=== PATIENT | male | born 1945 | race Caucasian/White ===

== ENCOUNTER 2021-02-25 18:11 | Inpatient (IN) ==
[~2021-02-25 18:11] MED LIST: Azelastine 0.1% Nasal Spray 30 ML BOTTLE NS PRN; Furosemide 20 MG TABLET PO PRN
[2021-02-25] MEDS: lisinopriL 20 MG TABLET PO SCH (20:10)
[2021-02-25] MEDS: GuaiFENesin/Dextromethorphan TABLET PO SCH (20:34)
[2021-02-25] MEDS: Apixaban 5 MG TABLET PO SCH (20:34)
[2021-02-25] MEDS: Carbidopa/Levodopa 25/100 TABLET PO SCH (20:34)
[2021-02-26 05:56] LABS: Basophils % 0.4 %; Eosinophils # 0.2 K/mcL (0.0-0.6); Hematocrit 43.7 % (37.5-50.1); Immature Granulocytes % 0.2 % (0-4); Lymphocytes # 1.4 K/mcL (0.6-4.6); Lymphocytes % 27.1 %; Mean Corpuscular HGB Conc 34.3 g/dL (31.6-35.5); Mean Corpuscular Hemoglobin 29.1 pg (28.0-33.3); Mean Corpuscular Volume 84.7 fL (83.0-100.0); Monocytes # 0.8 K/mcL (0.0-1.3); Monocytes % 16.6 %; Neutrophils # 2.6 K/mcL (1.6-8.9); Platelet Count 145 K/mcL (140-400); Red Blood Count 5.16 M/mcL (4.19-5.50); Red Cell Distribution Width 13.3 % (11.5-14.5); Segmented Neutrophils % 52.7 %
[2021-02-26 06:10] LABS: BUN/Creatinine Ratio 29 (6-26); Blood Urea Nitrogen 36 mg/dL (8-23); Calcium 8.7 mg/dL (8.6-10.3); Carbon Dioxide 24 mEq/L (23-29); Chloride 96 mEq/L (98-107); Glucose 90 mg/dL (70-105); Osmolality,Calculated 272 (280-300); Sodium 127 mEq/L (136-145); eGFR For African Americans > 60 (> 60); eGFR For Non-African Americans 56 (> 60)
[2021-02-26] MEDS ORDERED: hydroCHLOROthiazide 25 MG TABLET PO SCH (09:00)
[2021-02-26] MEDS: Metoprolol XL (24 HR) Succ 25 MG TAB.ER.24H PO SCH (09:19)
[2021-02-26] MEDS: Multivit/Ca/Min/Fe/FA 1 TAB TABLET PO SCH (09:19)
[2021-02-26] MEDS: Apixaban 5 MG TABLET PO SCH ×2 (09:20→19:59)
[2021-02-26] MEDS: Aspirin Enteric Coated 81 MG Tablet PO SCH (09:20)
[2021-02-26] MEDS: Carbidopa/Levodopa 25/100 TABLET PO SCH ×3 (09:20→19:59)
[2021-02-26] MEDS: Finasteride 5 MG TABLET PO SCH (09:20)
[2021-02-26] MEDS: lisinopriL 20 MG TABLET PO SCH (16:20)
[2021-02-26] MEDS: GuaiFENesin/Dextromethorphan TABLET PO SCH (19:59)
[2021-02-27] MEDS: Metoprolol XL (24 HR) Succ 25 MG TAB.ER.24H PO SCH (10:08)
[2021-02-27] MEDS: Multivit/Ca/Min/Fe/FA 1 TAB TABLET PO SCH (10:08)
[2021-02-27] MEDS: Carbidopa/Levodopa 25/100 TABLET PO SCH ×3 (10:08→20:55)
[2021-02-27] MEDS: Finasteride 5 MG TABLET PO SCH (10:08)
[2021-02-27] MEDS: Apixaban 5 MG TABLET PO SCH ×2 (10:08→20:53)
[2021-02-27] MEDS: Aspirin Enteric Coated 81 MG Tablet PO SCH (10:08)
[2021-02-27] MEDS: lisinopriL 20 MG TABLET PO SCH (18:43)
[2021-02-27] MEDS: GuaiFENesin/Dextromethorphan TABLET PO SCH (20:55)
[2021-02-28] MEDS: Multivit/Ca/Min/Fe/FA 1 TAB TABLET PO SCH (08:57)
[2021-02-28] MEDS: Metoprolol XL (24 HR) Succ 25 MG TAB.ER.24H PO SCH (08:58)
[2021-02-28] MEDS: Aspirin Enteric Coated 81 MG Tablet PO SCH (08:58)
[2021-02-28] MEDS: Nitrofurantoin (BID) 100 MG CAPSULE PO SCH ×2 (08:58→17:22)
[2021-02-28] MEDS: Carbidopa/Levodopa 25/100 TABLET PO SCH ×3 (08:58→21:26)
[2021-02-28] MEDS: Apixaban 5 MG TABLET PO SCH ×2 (08:58→21:25)
[2021-02-28] MEDS: Finasteride 5 MG TABLET PO SCH (08:58)
[2021-02-28] MEDS: lisinopriL 20 MG TABLET PO SCH (17:22)
[2021-02-28] MEDS: GuaiFENesin/Dextromethorphan TABLET PO SCH (21:25)
[2021-03-01 06:21] LABS: Hemoglobin 14.1 g/dL (12.9-16.9); Mean Corpuscular HGB Conc 34.4 g/dL (31.6-35.5); Mean Corpuscular Hemoglobin 29.6 pg (28.0-33.3); Platelet Count 134 K/mcL (140-400); Red Blood Count 4.77 M/mcL (4.19-5.50); Red Cell Distribution Width 13.4 % (11.5-14.5); White Blood Count 3.9 K/mcL (4.3-11.1)
[2021-03-01 06:39] LABS: Alanine Aminotransferase 8 Units/L (7-52); Albumin 3.3 g/dL (3.5-5.7); Alkaline Phosphatase 53 Units/L (34-104); Aspartate Amino Transferase 16 Units/L (13-39); BUN/Creatinine Ratio 27 (6-26); Bilirubin,Total 0.7 mg/dL (0.3-1.0); Blood Urea Nitrogen 31 mg/dL (8-23); Calcium 8.5 mg/dL (8.6-10.3); Carbon Dioxide 24 mEq/L (23-29); Chloride 98 mEq/L (98-107); Globulin 3.2 g/dL (2.4-3.5); Glucose 87 mg/dL (70-105); Magnesium 2.2 mg/dL (1.6-2.6); Osmolality,Calculated 270 (280-300); Sodium 127 mEq/L (136-145); Total Protein 6.5 g/dL (6.4-8.9); eGFR For African Americans > 60 (> 60); eGFR For Non-African Americans > 60 (> 60)
[2021-03-01] MEDS: Aspirin Enteric Coated 81 MG Tablet PO SCH (09:48)
[2021-03-01] MEDS: Nitrofurantoin (BID) 100 MG CAPSULE PO SCH ×2 (09:48→18:00)
[2021-03-01] MEDS: Apixaban 5 MG TABLET PO SCH ×2 (09:49→23:15)
[2021-03-01] MEDS: Metoprolol XL (24 HR) Succ 25 MG TAB.ER.24H PO SCH (09:49)
[2021-03-01] MEDS: Finasteride 5 MG TABLET PO SCH (09:49)
[2021-03-01] MEDS: Multivit/Ca/Min/Fe/FA 1 TAB TABLET PO SCH (09:50)
[2021-03-01] MEDS: Carbidopa/Levodopa 25/100 TABLET PO SCH ×3 (09:50→23:15)
[2021-03-01 13:08] LABS: C-Reactive Protein 10 mg/L (Less than 10)
[2021-03-01 13:42] LABS: Ferritin 43 ng/mL (20-250)
[2021-03-01] MEDS: lisinopriL 20 MG TABLET PO SCH (18:00)
[2021-03-01] MEDS: GuaiFENesin/Dextromethorphan TABLET PO SCH (23:16)
[2021-03-02] MEDS: Multivit/Ca/Min/Fe/FA 1 TAB TABLET PO SCH (09:41)
[2021-03-02] MEDS: Metoprolol XL (24 HR) Succ 25 MG TAB.ER.24H PO SCH (09:42)
[2021-03-02] MEDS: Nitrofurantoin (BID) 100 MG CAPSULE PO SCH ×2 (09:42→17:10)
[2021-03-02] MEDS: Carbidopa/Levodopa 25/100 TABLET PO SCH ×3 (09:42→21:25)
[2021-03-02] MEDS: Finasteride 5 MG TABLET PO SCH (09:42)
[2021-03-02] MEDS: Apixaban 5 MG TABLET PO SCH ×2 (09:42→21:26)
[2021-03-02] MEDS: Aspirin Enteric Coated 81 MG Tablet PO SCH (09:42)
[2021-03-02] MEDS: lisinopriL 20 MG TABLET PO SCH (17:10)
[2021-03-02] MEDS: GuaiFENesin/Dextromethorphan TABLET PO SCH (21:26)
[2021-03-03] MEDS: Nitrofurantoin (BID) 100 MG CAPSULE PO SCH ×2 (09:48→16:06)
[2021-03-03] MEDS: Metoprolol XL (24 HR) Succ 25 MG TAB.ER.24H PO SCH (09:48)
[2021-03-03] MEDS: Finasteride 5 MG TABLET PO SCH (09:48)
[2021-03-03] MEDS: Nystatin Cream 15 GM TUBE TP SCH ×2 (09:48→22:38)
[2021-03-03] MEDS: Apixaban 5 MG TABLET PO SCH ×2 (09:48→22:38)
[2021-03-03] MEDS: Multivit/Ca/Min/Fe/FA 1 TAB TABLET PO SCH (09:48)
[2021-03-03] MEDS: Carbidopa/Levodopa 25/100 TABLET PO SCH ×3 (09:48→22:38)
[2021-03-03] MEDS: Aspirin Enteric Coated 81 MG Tablet PO SCH (09:49)
[2021-03-03] MEDS: lisinopriL 20 MG TABLET PO SCH (17:51)
[2021-03-03] MEDS: GuaiFENesin/Dextromethorphan TABLET PO SCH (22:38)
[2021-03-04] MEDS: Metoprolol XL (24 HR) Succ 25 MG TAB.ER.24H PO SCH (08:37)
[2021-03-04] MEDS: Carbidopa/Levodopa 25/100 TABLET PO SCH ×3 (08:37→22:50)
[2021-03-04] MEDS: Apixaban 5 MG TABLET PO SCH ×2 (08:37→22:50)
[2021-03-04] MEDS: Multivit/Ca/Min/Fe/FA 1 TAB TABLET PO SCH (08:37)
[2021-03-04] MEDS: Aspirin Enteric Coated 81 MG Tablet PO SCH (08:38)
[2021-03-04] MEDS: Nystatin Cream 15 GM TUBE TP SCH ×2 (08:38→22:50)
[2021-03-04] MEDS: Nitrofurantoin (BID) 100 MG CAPSULE PO SCH ×2 (08:38→14:39)
[2021-03-04] MEDS: Finasteride 5 MG TABLET PO SCH (08:38)
[2021-03-04] MEDS ORDERED: Furosemide 40 MG TABLET PO ONE (12:09)
[2021-03-04 12:58] LABS: Hemoglobin 14.8 g/dL (12.9-16.9); Mean Corpuscular HGB Conc 32.9 g/dL (31.6-35.5); Mean Corpuscular Hemoglobin 28.9 pg (28.0-33.3); Mean Corpuscular Volume 87.9 fL (83.0-100.0); Platelet Count 193 K/mcL (140-400); Red Blood Count 5.12 M/mcL (4.19-5.50); Red Cell Distribution Width 13.6 % (11.5-14.5); White Blood Count 6.2 K/mcL (4.3-11.1)
[2021-03-04] MEDS: lisinopriL 20 MG TABLET PO SCH (14:39)
[2021-03-04 15:16] LABS: Alanine Aminotransferase 11 Units/L (7-52); Albumin 3.8 g/dL (3.5-5.7); Albumin/Globulin Ratio 1.1 (1.1-2.2); Alkaline Phosphatase 55 Units/L (34-104); Aspartate Amino Transferase 25 Units/L (13-39); BUN/Creatinine Ratio 23 (6-26); Bilirubin,Total 0.7 mg/dL (0.3-1.0); Blood Urea Nitrogen 25 mg/dL (8-23); Calcium 9.4 mg/dL (8.6-10.3); Carbon Dioxide 20 mEq/L (23-29); Chloride 101 mEq/L (98-107); Globulin 3.5 g/dL (2.4-3.5); Glucose 106 mg/dL (70-105); Osmolality,Calculated 277 (280-300); Potassium 4.4 mEq/L (3.5-5.1); Sodium 131 mEq/L (136-145); Total Protein 7.3 g/dL (6.4-8.9); eGFR For African Americans > 60 (> 60); eGFR For Non-African Americans > 60 (> 60)
[2021-03-04] MEDS: GuaiFENesin/Dextromethorphan TABLET PO SCH (22:49)
[2021-03-05] MEDS: Nitrofurantoin (BID) 100 MG CAPSULE PO SCH ×2 (07:42→15:30)
[2021-03-05] MEDS: Multivit/Ca/Min/Fe/FA 1 TAB TABLET PO SCH (07:42)
[2021-03-05] MEDS: levoFLOXacin 750 MG TABLET PO SCH (07:42)
[2021-03-05] MEDS: Finasteride 5 MG TABLET PO SCH (07:42)
[2021-03-05] MEDS: Aspirin Enteric Coated 81 MG Tablet PO SCH (07:42)
[2021-03-05] MEDS: Carbidopa/Levodopa 25/100 TABLET PO SCH ×3 (07:42→21:21)
[2021-03-05] MEDS: Furosemide 20 MG TABLET PO SCH (07:42)
[2021-03-05] MEDS: Apixaban 5 MG TABLET PO SCH ×2 (07:42→21:21)
[2021-03-05] MEDS: Nystatin Cream 15 GM TUBE TP SCH ×2 (07:43→21:22)
[2021-03-05] MEDS: Metoprolol XL (24 HR) Succ 25 MG TAB.ER.24H PO SCH (11:23)
[2021-03-05] MEDS: lisinopriL 20 MG TABLET PO SCH (15:30)
[2021-03-05] MEDS: GuaiFENesin/Dextromethorphan TABLET PO SCH (21:21)
[2021-03-06] MEDS: Carbidopa/Levodopa 25/100 TABLET PO SCH ×3 (07:38→20:56)
[2021-03-06] MEDS: Multivit/Ca/Min/Fe/FA 1 TAB TABLET PO SCH (07:38)
[2021-03-06] MEDS: Metoprolol XL (24 HR) Succ 25 MG TAB.ER.24H PO SCH (07:38)
[2021-03-06] MEDS: Nitrofurantoin (BID) 100 MG CAPSULE PO SCH ×2 (07:39→15:53)
[2021-03-06] MEDS: levoFLOXacin 750 MG TABLET PO SCH (07:39)
[2021-03-06] MEDS: Apixaban 5 MG TABLET PO SCH ×2 (07:39→20:56)
[2021-03-06] MEDS: Aspirin Enteric Coated 81 MG Tablet PO SCH (07:39)
[2021-03-06] MEDS: Finasteride 5 MG TABLET PO SCH (07:39)
[2021-03-06] MEDS: Furosemide 20 MG TABLET PO SCH (07:39)
[2021-03-06] MEDS: Nystatin Cream 15 GM TUBE TP SCH ×2 (07:40→21:52)
[2021-03-06 15:37] LABS: Hematocrit 40.7 % (37.5-50.1); Hemoglobin 13.3 g/dL (12.9-16.9)
[2021-03-06] MEDS: lisinopriL 20 MG TABLET PO SCH (15:57)
[2021-03-06] MEDS: GuaiFENesin/Dextromethorphan TABLET PO SCH (20:56)
[2021-03-07] MEDS: Carbidopa/Levodopa 25/100 TABLET PO SCH ×3 (08:59→20:59)
[2021-03-07] MEDS: Multivit/Ca/Min/Fe/FA 1 TAB TABLET PO SCH (08:59)
[2021-03-07] MEDS: Nitrofurantoin (BID) 100 MG CAPSULE PO SCH (09:00)
[2021-03-07] MEDS: levoFLOXacin 750 MG TABLET PO SCH (09:00)
[2021-03-07] MEDS: Apixaban 5 MG TABLET PO SCH ×2 (09:00→20:59)
[2021-03-07] MEDS: Metoprolol XL (24 HR) Succ 25 MG TAB.ER.24H PO SCH (09:00)
[2021-03-07] MEDS: Aspirin Enteric Coated 81 MG Tablet PO SCH (09:00)
[2021-03-07] MEDS: Furosemide 20 MG TABLET PO SCH (09:00)
[2021-03-07] MEDS: Finasteride 5 MG TABLET PO SCH (09:00)
[2021-03-07] MEDS: Nystatin Cream 15 GM TUBE TP SCH ×2 (09:01→20:59)
[2021-03-07] MEDS: lisinopriL 20 MG TABLET PO SCH (17:01)
[2021-03-07] MEDS: GuaiFENesin/Dextromethorphan TABLET PO SCH (20:59)
[2021-03-08] MEDS: Apixaban 5 MG TABLET PO SCH ×2 (08:42→21:46)
[2021-03-08] MEDS: Aspirin Enteric Coated 81 MG Tablet PO SCH (08:42)
[2021-03-08] MEDS: Metoprolol XL (24 HR) Succ 25 MG TAB.ER.24H PO SCH (08:43)
[2021-03-08] MEDS: Multivit/Ca/Min/Fe/FA 1 TAB TABLET PO SCH (08:43)
[2021-03-08] MEDS: levoFLOXacin 750 MG TABLET PO SCH (08:43)
[2021-03-08] MEDS: Carbidopa/Levodopa 25/100 TABLET PO SCH ×3 (08:43→21:46)
[2021-03-08] MEDS: Furosemide 20 MG TABLET PO SCH (08:44)
[2021-03-08] MEDS: Finasteride 5 MG TABLET PO SCH (08:44)
[2021-03-08] MEDS: Nystatin Cream 15 GM TUBE TP SCH ×2 (08:47→21:46)
[2021-03-08] MEDS: lisinopriL 20 MG TABLET PO SCH (16:45)
[2021-03-08] MEDS: GuaiFENesin/Dextromethorphan TABLET PO SCH (21:46)
[2021-03-09] MEDS: Finasteride 5 MG TABLET PO SCH (07:34)
[2021-03-09] MEDS: Metoprolol XL (24 HR) Succ 25 MG TAB.ER.24H PO SCH (07:35)
[2021-03-09] MEDS: Nystatin Cream 15 GM TUBE TP SCH ×2 (07:35→19:48)
[2021-03-09] MEDS: levoFLOXacin 750 MG TABLET PO SCH (07:35)
[2021-03-09] MEDS: Carbidopa/Levodopa 25/100 TABLET PO SCH ×3 (07:35→19:48)
[2021-03-09] MEDS: Furosemide 20 MG TABLET PO SCH (07:35)
[2021-03-09] MEDS: Aspirin Enteric Coated 81 MG Tablet PO SCH (07:35)
[2021-03-09] MEDS: Apixaban 5 MG TABLET PO SCH ×2 (07:35→19:48)
[2021-03-09] MEDS: Multivit/Ca/Min/Fe/FA 1 TAB TABLET PO SCH (07:35)
[2021-03-09] MEDS: lisinopriL 20 MG TABLET PO SCH (14:27)
[2021-03-09] MEDS: GuaiFENesin/Dextromethorphan TABLET PO SCH (19:48)
[2021-03-10] MEDS: Carbidopa/Levodopa 25/100 TABLET PO SCH ×3 (09:28→21:38)
[2021-03-10] MEDS: levoFLOXacin 750 MG TABLET PO SCH (09:28)
[2021-03-10] MEDS: Aspirin Enteric Coated 81 MG Tablet PO SCH (09:28)
[2021-03-10] MEDS: Multivit/Ca/Min/Fe/FA 1 TAB TABLET PO SCH (09:28)
[2021-03-10] MEDS: Apixaban 5 MG TABLET PO SCH ×2 (09:28→21:38)
[2021-03-10] MEDS: Finasteride 5 MG TABLET PO SCH (09:29)
[2021-03-10] MEDS: Metoprolol XL (24 HR) Succ 25 MG TAB.ER.24H PO SCH (09:29)
[2021-03-10] MEDS: Furosemide 20 MG TABLET PO SCH (09:29)
[2021-03-10] MEDS: Nystatin Cream 15 GM TUBE TP SCH ×2 (09:33→21:42)
[2021-03-10] MEDS: lisinopriL 20 MG TABLET PO SCH (17:41)
[2021-03-10] MEDS: GuaiFENesin/Dextromethorphan TABLET PO SCH (21:38)
[2021-03-11] MEDS: levoFLOXacin 750 MG TABLET PO SCH (08:54)
[2021-03-11] MEDS: Furosemide 20 MG TABLET PO SCH (08:54)
[2021-03-11] MEDS: Finasteride 5 MG TABLET PO SCH (08:54)
[2021-03-11] MEDS: Apixaban 5 MG TABLET PO SCH ×2 (08:54→19:56)
[2021-03-11] MEDS: Aspirin Enteric Coated 81 MG Tablet PO SCH (08:54)
[2021-03-11] MEDS: Multivit/Ca/Min/Fe/FA 1 TAB TABLET PO SCH (08:54)
[2021-03-11] MEDS: Metoprolol XL (24 HR) Succ 25 MG TAB.ER.24H PO SCH (08:54)
[2021-03-11] MEDS: Carbidopa/Levodopa 25/100 TABLET PO SCH ×3 (08:54→19:56)
[2021-03-11] MEDS: Nystatin Cream 15 GM TUBE TP SCH ×2 (09:57→19:56)
[2021-03-11] MEDS: lisinopriL 20 MG TABLET PO SCH (16:54)
[2021-03-11] MEDS: GuaiFENesin/Dextromethorphan TABLET PO SCH (19:56)
[2021-03-12 07:05] VITALS: BP 138/75; PULSE 61; RESP 16; TEMP 98; O2SAT 93
[2021-03-12] MEDS: Apixaban 5 MG TABLET PO SCH (08:54)
[2021-03-12] MEDS: Finasteride 5 MG TABLET PO SCH (08:54)
[2021-03-12] MEDS: Carbidopa/Levodopa 25/100 TABLET PO SCH (08:54)
[2021-03-12] MEDS: levoFLOXacin 750 MG TABLET PO SCH (08:54)
[2021-03-12] MEDS: Furosemide 20 MG TABLET PO SCH (08:55)
[2021-03-12] MEDS: Multivit/Ca/Min/Fe/FA 1 TAB TABLET PO SCH (08:55)
[2021-03-12] MEDS: Aspirin Enteric Coated 81 MG Tablet PO SCH (08:55)
[2021-03-12] MEDS: Metoprolol XL (24 HR) Succ 25 MG TAB.ER.24H PO SCH (08:55)
[2021-03-12] MEDS: Nystatin Cream 15 GM TUBE TP SCH (08:56)
== END 2021-03-12 14:37 | disposition hospice, home (50) | DRG 177 ==
LOC: INPGRE 18:11
PROVIDERS: ADMIT Family Medicine; ATTEND Family Medicine